=== PATIENT | female | born 1965 | race Caucasian/White ===

== ENCOUNTER 2019-05-15 07:48 | Day surgery (SDC) | payer OTHER | END 2019-05-15 14:20 | disposition home or self-care (01) | LOC: CIR.AMB 07:48 | DX: M77.12 Lateral epicondylitis, left elbow (principal) ==

== ENCOUNTER 2019-10-16 08:17 | Day surgery (SDC) | payer OTHER | END 2019-10-16 15:25 | disposition home or self-care (01) | LOC: CIR.AMB 08:17 → ADM 10:15 → CIR.AMB 15:25 | DX: M75.122 Complete rotator cuff tear or rupture of left shoulder, not specified as traumatic (principal); M75.42 Impingement syndrome of left shoulder ==